=== PATIENT | female | born 1990 | race Caucasian/White ===

== ENCOUNTER 2024-05-17 18:19 | Emergency (ER) | payer OTHER | END 2024-05-17 19:30 | disposition home or self-care (01) | LOC: KA.ED 18:19 | DX: S06.0X9A Concussion with loss of consciousness of unspecified duration, initial encounter (principal); R56.9 Unspecified convulsions; Z79.899 Other long term (current) drug therapy; V80.010A Animal-rider injured by fall from or being thrown from horse in noncollision accident, initial encounter | CPT/HCPCS: 70450; 99285 ==